=== PATIENT | male | born 1985 | race Caucasian/White ===

== ENCOUNTER 2022-02-19 10:35 | Emergency (ER) | payer OTHER ==
[2022-02-19 10:48] VITALS: BP 161/86; PULSE 109; RESP 18; TEMP 97.5; BMI 25.7
[2022-02-19] MEDS ORDERED: LORazepam 1 MG TABLET PO ONE ×2 (11:51→12:11)
[2022-02-19] MEDS ORDERED: LORazepam 1 MG TABLET ONE (12:00)
[2022-02-19] MEDS ORDERED: LORazepam 2 MG TABLET PO ONE (12:00)
== END 2022-02-19 14:05 | disposition home or self-care (01) ==
LOC: JER 10:35 → EDBD 10:35 → JER 14:05
DX: F19.90 Other psychoactive substance use, unspecified, uncomplicated (principal); F41.9 Anxiety disorder, unspecified
CPT/HCPCS: 99283-25